=== PATIENT | male | born 1950 | race Caucasian/White ===

== ENCOUNTER 2023-12-16 11:22 | Emergency (ER) | payer MEDICARE, BC, SELFPAY ==
[2023-12-16] VITALS (7 sets, daily range): BP systolic 126–161; BP diastolic 65–80; PULSE 64–108; RESP 16–24; TEMP 36.8; O2SAT 94–100; BMI 30.7
--- NOTE | 2023-12-16 11:32 | DI.RAD.S_ITS ---
PROCEDURE: XR WRIST RT MIN 3V INDICATIONS: fall/wrist pain TECHNIQUE: 4 views of the wrist were acquired. COMPARISON: None. FINDINGS: Bones: Comminuted, displaced, intra-articular fracture of distal radius. Soft tissues: No suspicious soft tissue calcifications. IMPRESSION: Distal radius fracture. Dictated by: Joan Willard MD, PhD on 12/16/2023 at 12:23 Approved by: oJan Willard MD, PhD on 12/16/2023 at 12:25
[2023-12-16] MEDS: IBUPROFEN 400 MG TABLET PO (13:56)
--- NOTE | 2023-12-16 14:41 | DI.CT.S_ITS ---
PROCEDURE: CT CERVICAL SPINE WO CON INDICATIONS: fall TECHNIQUE: Noncontrast 3 mm thick sections acquired from the skull base to the T4 level. Sagittal and coronal reformats were then constructed. For radiation dose reduction, the following was used: automated exposure control, adjustment of mA and/or kV according to patient size. COMPARISON: None. FINDINGS: Image quality: Excellent. Bones: No fractures or dislocations. There are multilevel degenerative changes of the cervical spine with facet and uncovertebral arthropathy, disc height loss with degenerative endplate changes and spurring. This is most pronounced at C5-C6. Visualized superior ribs are intact. Soft tissues: Prevertebral soft tissues are normal in thickness. No paravertebral hematomas. No apical pneumothoraces. IMPRESSION: No displaced fracture or traumatic subluxation. Dictated by: Armen Gabriel M.D. on 12/16/2023 at 15:23 Approved by: Armen Gabriel M.D. on 12/16/2023 at 15:25
--- NOTE | 2023-12-16 14:41 | DI.CT.S_ITS ---
PROCEDURE: CT HEAD/BRAIN WO CON INDICATIONS: Fall TECHNIQUE: Noncontrast 4.5 mm thick angled axial sections acquired from the foramen magnum to the vertex, with coronal and sagittal reformats. For radiation dose reduction, the following was used: automated exposure control, adjustment of mA and/or kV according to patient size. COMPARISON: None. FINDINGS: Image quality: Diagnostic. CSF spaces: Basal cisterns are patent. No extra-axial fluid collections. The ventricles are symmetric in size and shape. Brain: Right frontal dural-based lesion measuring 1.5 x 1.2 x 0.6 centimeters. No intracranial bleeds. There is cerebral volume loss for age, with resultant ventricular and sulcal prominence. There are periventricular and deep white matter chronic small vessel ischemic changes. There is intracranial internal carotid artery atherosclerosis. Skull and face: Calvarium and visualized facial bones appear intact, without suspicious lesions. Sinuses: Complete chronic opacification of the left maxillary sinus and left anterior ethmoid air cells. Mild mucosal thickening of the inferior left frontal sinus. The paranasal sinuses are otherwise clear. The mastoids are clear. IMPRESSION: Right frontal dural-based lesion measuring up to 1.5 centimeters as described above, this appearance is most likely that of a meningioma. Focal subdural hematoma is thought to be less likely and would be expected to be more dense. Otherwise, no acute intracranial abnormalities. Dictated by: Armen Gabriel M.D. on 12/16/2023 at 15:19 Approved by: Armen Gabriel M.D. on 12/16/2023 at 15:23
--- NOTE | 2023-12-16 14:41 | DI.RAD.S_ITS ---
PROCEDURE: XR HIP W PEL IF DONE RT 2V INDICATIONS: fall TECHNIQUE: AP pelvis with lateral view(s) of the right hip(s). COMPARISON: [facility], CT, CT HEAD/BRAIN WO CON, 12/16/2023, 14:53. [facility], CT, CT CERVICAL SPINE WO CON, 12/16/2023, 14:53. [facility], CR, XR WRIST RT MIN 3V, 12/16/2023, 11:35. FINDINGS: Bones: No fractures or dislocations. Pelvic ring appears intact. No suspicious bony lesions. Soft tissues: The visualized bowel gas pattern is normal. No suspicious soft tissue calcifications. Pelvic phleboliths are incidentally noted. Vasectomy clips can be seen. IMPRESSION: No displaced fractures are seen on these plain films. If there is focal tenderness, or other clinical concern for a fracture not seen on these images in this patient with a given history of trauma, please consider a dedicated CT or a short-term followup plain film series (in 1-2 weeks) for further evaluation. Dictated by: Ayan Herrera M.D. on 12/16/2023 at 14:19 Approved by: Ayan Herrera M.D. on 12/16/2023 at 14:19
--- NOTE | 2023-12-16 14:44 | ED_ITS ---
HPI - Fall <Joy Tovar PA-C - Last Filed: 12/16/23 19:06> General Chief Complaint: Fall Stated Complaint: wrist injury Time Seen by Provider: 12/16/23 12:36 Source: patient Mode of arrival: Ambulatory History of Present Illness HPI Narrative: 73-year-old male with no reported past medical history presents to the ED status post a fall sustained last night. Patient states that he has his daughter and her family visiting, they were celebrating, he consumed more alcoholic drinks than he normally does. Patient went to walk the dogs, went looking for him a little bit later, found him sitting at the bottom of the steps shouting for help. Patient's surmised that he had suffered a fall and brought him indoors. Patient states that he does not remember what happened, that he does not even remember going out to walk the dogs. Patient is endorsing pain in the right wrist and right hip. While he is unsure if he hit his head, he does feel soreness to the right temporal area. Denies neck pain, back pain. Denies chest pain, shortness of breath, fever, chills, nausea, vomiting. Patient states that he was not sick or unwell yesterday prior to the injury. Related Data Previous Rx's Medication Instructions Recorded hydrocodone 5 mg-acetaminophen 325 1 tab PO Q8H PRN pain #10 tabs 12/16/23 mg tablet Allergies Allergy/AdvReac Type Severity Reaction Status Date / Time No Known Drug Allergies Allergy Verified 12/16/23 11:27 Review of Systems <Joy Tovar PA-C - Last Filed: 12/16/23 19:06> Constitutional Constitutional: Denies chills, Denies fatigue, Denies fever(s), Denies frequent falls, Denies lethargy and Denies weakness Eyes Eyes: Denies change in vision, Denies eye discharge, Denies irritation and Denies loss of vision ENT Ears, Nose, Mouth, and Throat: Denies change in voice, Denies dizziness, Denies neck pain, Denies sore throat and Denies throat swelling Cardiovascular Cardiovascular: Denies chest pain, Denies irregular heart rhythm, Denies lightheadedness, Denies palpitations, Denies dyspnea, Denies dyspnea on exertion and Denies orthopnea Respiratory Respiratory: Denies cough, Denies dyspnea, Denies dyspnea on exertion and Denies wheezing Gastrointestinal Gastrointestinal: Denies abdominal pain, Denies change in bowel habits, Denies diarrhea, Denies nausea and Denies vomiting Musculoskeletal Musculoskeletal: Denies neck pain and Denies numbness Comments: Right hip, right wrist pain Integumentary/Breasts Skin/Breast: Denies pruritus, Denies erythema, Denies rash and Denies wounds Neurologic Neurologic: Denies behavioral changes, Denies confusion, Denies dizziness, Denies frequent falls, Denies loss of vision, Denies numbness and Denies weakness Psychiatric Psychiatric: Denies anxiety, Denies behavioral changes, Denies confusion, Denies depression, Denies homicidal ideation and Denies suicidal ideation Endocrine Endocrine: Denies fatigue, Denies flushing and Denies palpitations Hematologic/Lymphatic Hematologic/Lymphatic: Denies easy bruising Allergic/Immunologic Allergic/Immunologic: Denies urticaria, Denies throat swelling and Denies wheezing Patient History <Joy Tovar PA-C - Last Filed: 12/16/23 19:06> Social History Smoking Status: Current every day smoker Smoking Status: Current every day smoker tobacco type: cigars alcohol intake frequency: 0-2 drinks per day Substance Use Type: marijuana Exam <Joy Tovar PA-C - Last Filed: 12/16/23 19:06> Narrative Exam Narrative: Const General:?cooperative, healthy appearing and comfortable [facility] Head:?normal to inspection Ears:?hearing grossly normal bilaterally Nose:?external nose normal Face and sinus:?normal facial exam and sinuses nontender Mouth:?oral mucosae normal Throat:?posterior oropharynx normal Eyes General:?appearance normal, both eyes and all related structures Neck Neck:?normal visual inspection and no lymphadenopathy noted Resp Effort & Inspection:?normal respiratory effort Auscultation:?clear to auscultation bilaterally Cardio Rate:?regular rate Rhythm:?regular rhythm Musculoskeletal Swelling, tenderness of right wrist. Range of motion limited by pain. Mild tenderness to palpation of the right hip. No midline tenderness to palpation. No paraspinal tenderness to palpation. Gait is normal. There are some abrasions to the right knee. Neuro General:?patient alert, patient awake and patient oriented x3 Initial Vital Signs Initial Vital Signs: Vital Signs Temperature 98.3 F 12/16/23 11:27 Pulse Rate 64 12/16/23 11:27 Respiratory Rate 18 12/16/23 11:27 Blood Pressure 133/75 12/16/23 11:27 Pulse Oximetry 100 12/16/23 11:27 Oxygen Delivery Method Room Air 12/16/23 11:27 <Lissy Root MD - Last Filed: 12/16/23 20:45> Initial Vital Signs Initial Vital Signs: Vital Signs Temperature 98.3 F 12/16/23 11:27 Pulse Rate 64 12/16/23 11:27 Respiratory Rate 18 12/16/23 11:27 Blood Pressure 133/75 12/16/23 11:27 Pulse Oximetry 100 12/16/23 11:27 Oxygen Delivery Method Room Air 12/16/23 11:27 Course <Joy Tovar PA-C - Last Filed: 12/16/23 19:06> Orders Ordered: ED Orders 12/16/23 14:41 CT cervical spine wo con Stat CT head/brain wo con Stat XR hip w pel if done RT 2V Stat 12/16/23 17:50 CXR [XR chest 2V] Stat 12/16/23 18:06 BNP [NT-proBNP (BNP-Adult 18+)] Stat CBC Auto Diff [Complete Blood Count AUTO DIFF] Stat CMP [Comprehensive Metabolic Panel] Stat Lipase Stat PT [Prothrombin Time INR] Stat PTT Partial Thromboplastin Grupo Stat Troponin & CK Cardiac Panel Stat 12/16/23 18:56 CT head/brain wo con Stat Discontinued Medications Hydrocodone Bitart/Acetaminophen (Hydrocodone/Acet 5/325 Prepack) 1 bottle MISC DIRECTED ONE Stop: 12/16/23 20:09 Last Admin: 12/16/23 20:15 Dose: 1 bottle Documented By: FABI Sodium Chloride (Normal Saline 0.9%) 1,000 mls @ 1,000 mls/hr IV BOLUS ONE Stop: 12/16/23 18:51 Last Infusion: 12/16/23 19:50 Dose: Infused Documented By: Admin: 12/16/23 18:28 Dose: 1,000 mls/hr Documented By: MERLYN Ibuprofen (Ibuprofen 400 Mg Tablet) 400 mg PO NOW ONE Stop: 12/16/23 13:50 Last Admin: 12/16/23 13:56 Dose: 400 mg Documented By: JEANINE Oxycodone/Acetaminophen (Oxycodone/Acetaminophen 5/325 Tablet) 1 tab PO NOW ONE Stop: 12/16/23 15:55 Last Admin: 12/16/23 15:59 Dose: 1 tab Documented By: JEANINE Vital Signs Vital signs: Vital Signs - 8 hr 12/16/23 17:45 12/16/23 18:27 12/16/23 18:27 Pulse Rate 108 H 70 Respiratory Rate 18 16 Blood Pressure 126/65 152/73 H Pulse Oximetry 94 96 Oxygen Delivery Method Room Air 12/16/23 18:30 12/16/23 18:30 12/16/23 19:00 Pulse Rate 71 69 Respiratory Rate 18 24 Blood Pressure 151/79 H Pulse Oximetry 97 98 Oxygen Delivery Method 12/16/23 19:00 12/16/23 19:30 12/16/23 20:00 Pulse Rate 65 66 Respiratory Rate 20 18 Blood Pressure 152/74 H Pulse Oximetry 98 99 Oxygen Delivery Method Room Air 12/16/23 20:00 Pulse Rate Respiratory Rate Blood Pressure 161/80 H Pulse Oximetry Oxygen Delivery Method <Lissy Root MD - Last Filed: 12/16/23 20:45> Orders Ordered: ED Orders 12/16/23 14:41 CT cervical spine wo con Stat CT head/brain wo con Stat XR hip w pel if done RT 2V Stat 12/16/23 17:50 CXR [XR chest 2V] Stat 12/16/23 18:06 BNP [NT-proBNP (BNP-Adult 18+)] Stat CBC Auto Diff [Complete Blood Count AUTO DIFF] Stat CMP [Comprehensive Metabolic Panel] Stat Lipase Stat PT [Prothrombin Time INR] Stat PTT Partial Thromboplastin Grupo Stat Troponin & CK Cardiac Panel Stat 12/16/23 18:56 CT head/brain wo con Stat Discontinued Medications Hydrocodone Bitart/Acetaminophen (Hydrocodone/Acet 5/325 Prepack) 1 bottle MISC DIRECTED ONE Stop: 12/16/23 20:09 Last Admin: 12/16/23 20:15 Dose: 1 bottle Documented By: FABI Sodium Chloride (Normal Saline 0.9%) 1,000 mls @ 1,000 mls/hr IV BOLUS ONE Stop: 12/16/23 18:51 Last Infusion: 12/16/23 19:50 Dose: Infused Documented By: Admin: 12/16/23 18:28 Dose: 1,000 mls/hr Documented By: MERLYN Ibuprofen (Ibuprofen 400 Mg Tablet) 400 mg PO NOW ONE Stop: 12/16/23 13:50 Last Admin: 12/16/23 13:56 Dose: 400 mg Documented By: JEANINE Oxycodone/Acetaminophen (Oxycodone/Acetaminophen 5/325 Tablet) 1 tab PO NOW ONE Stop: 12/16/23 15:55 Last Admin: 12/16/23 15:59 Dose: 1 tab Documented By: JEANINE Vital Signs Vital signs: Vital Signs - 8 hr 12/16/23 17:45 12/16/23 18:27 12/16/23 18:27 Pulse Rate 108 H 70 Respiratory Rate 18 16 Blood Pressure 126/65 152/73 H Pulse Oximetry 94 96 Oxygen Delivery Method Room Air 12/16/23 18:30 12/16/23 18:30 12/16/23 19:00 Pulse Rate 71 69 Respiratory Rate 18 24 Blood Pressure 151/79 H Pulse Oximetry 97 98 Oxygen Delivery Method 12/16/23 19:00 12/16/23 19:30 12/16/23 20:00 Pulse Rate 65 66 Respiratory Rate 20 18 Blood Pressure 152/74 H Pulse Oximetry 98 99 Oxygen Delivery Method Room Air 12/16/23 20:00 Pulse Rate Respiratory Rate Blood Pressure 161/80 H Pulse Oximetry Oxygen Delivery Method MDM - Fall <Joy Tovar PA-C - Last Filed: 12/16/23 19:06> Lab Data 12/16/23 18:06 12/16/23 18:06 Labs: Lab Results 12/16/23 Range/Units 18:06 WBC 12.7 H (4.5-11.0) X10^3/uL RBC 4.74 (4.5-5.9) X10^6/uL Hgb 15.4 (13.5-17.5) g/dL Hct 44.4 (41-53) % MCV 93.6 (80-100) fL MCH 32.5 (26-34) PG MCHC 34.7 (30-36) % RDW 13.4 (11.6-14.8) % Plt Count 202 (150-400) X10^3/uL Neut % (Auto) 76.4 H (50-75) % Lymph % (Auto) 14.7 L (25-40) % [place] % (Auto) 7.6 (3-14) % Eos % (Auto) 0.9 L (2-4) % Baso % (Auto) 0.4 (0-2) % Neut # (Auto) 9700 H (7019-7106) /uL Lymph # (Auto) 1900 (3858-1288) /uL [place] # (Auto) 1000 H (0-900) /uL Eos # (Auto) 100 (0-450) /uL Baso # (Auto) 100 (0-100) /uL PT 11.6 (9.4-12.5) SECONDS INR 1.0 (0.9-1.3) APTT 30 (25.1-36.5) SECONDS Sodium 139 (137-145) mmol/L Potassium 4.2 (3.4-5.1) mmol/L Chloride 109 H (98-107) mmol/L Carbon Dioxide 24 (22-32) mmol/L BUN 29 H (9-20) mg/dL Creatinine 1.27 H (0.66-1.25) mg/dL Estimated GFR > 60 (>60) mL/min BUN/Creatinine Ratio 22.8 H (6-22) Glucose 146 H (80-110) mg/dL Calcium 9.4 (8.4-10.2) mg/dL Total Bilirubin 0.7 (0.2-1.3) mg/dL AST 25 (17-59) IU/L ALT 33 (<50) IU/L Alkaline Phosphatase 49 (38-126) U/L Total Creatine Kinase 220 H (55-170) U/L Troponin I < 0.012 (0.01-0.034) ng/mL NT-Pro-B Natriuret Pep 549 H (<125) pg/mL Total Protein 7.6 (6.3-8.2) g/dL Albumin 4.5 (3.5-5.0) g/dL Globulin 3.1 (1.7-4.1) g/dL Albumin/Globulin Ratio 1.5 (1.0-2.8) Lipase 125 (23-300) U/L MDM Narrative Medical decision making narrative: 73-year-old male with no reported past medical history presents to the ED status post a fall sustained last night. Concern for fracture/dislocation versus musculoskeletal sprain/strain versus intracranial hemorrhage versus other. Will obtain CT head, CT C-spine, x-rays of wrist, hip and pelvis. Tetanus is up-to-date. Head CT shows a right frontal dural-based lesion measuring up to 1.5 cm. No intracranial bleeds. Focal subdural hematoma is thought to be less likely, and would be expected to be more dense. No other acute intracranial abnormalities. Cervical spines CT without acute findings. Hip x-ray negative. Right wrist x- ray shows a comminuted, displaced, intra-articular fracture of the distal radius. Given findings on head CT, will obtain a repeat CT in 4 hours. Will also obtain Labs, EKG, chest x-ray, troponin, BNP. Likely discharge if repeat CT and workup negative. EKG shows right bundle branch block, no acute ST T changes. Chest x-ray without acute findings. Labs unremarkable. Troponin within normal limits. Creatinine slightly elevated at 1.27. Unclear if CKD versus AIXA. Patient given a L bolus of IV fluids. BNP 549 which is within normal limits per patient's age. Awaiting repeat CT. Patient has been turned over to Dr. Lissy Root at this time. <Lissy Root MD - Last Filed: 12/16/23 20:45> Lab Data Labs: Lab Results 12/16/23 Range/Units 18:06 WBC 12.7 H (4.5-11.0) X10^3/uL RBC 4.74 (4.5-5.9) X10^6/uL Hgb 15.4 (13.5-17.5) g/dL Hct 44.4 (41-53) % MCV 93.6 (80-100) fL MCH 32.5 (26-34) PG MCHC 34.7 (30-36) % RDW 13.4 (11.6-14.8) % Plt Count 202 (150-400) X10^3/uL Neut % (Auto) 76.4 H (50-75) % Lymph % (Auto) 14.7 L (25-40) % [place] % (Auto) 7.6 (3-14) % Eos % (Auto) 0.9 L (2-4) % Baso % (Auto) 0.4 (0-2) % Neut # (Auto) 9700 H (9621-6562) /uL Lymph # (Auto) 1900 (0161-5825) /uL [place] # (Auto) 1000 H (0-900) /uL Eos # (Auto) 100 (0-450) /uL Baso # (Auto) 100 (0-100) /uL PT 11.6 (9.4-12.5) SECONDS INR 1.0 (0.9-1.3) APTT 30 (25.1-36.5) SECONDS Sodium 139 (137-145) mmol/L Potassium 4.2 (3.4-5.1) mmol/L Chloride 109 H (98-107) mmol/L Carbon Dioxide 24 (22-32) mmol/L BUN 29 H (9-20) mg/dL Creatinine 1.27 H (0.66-1.25) mg/dL Estimated GFR > 60 (>60) mL/min BUN/Creatinine Ratio 22.8 H (6-22) Glucose 146 H (80-110) mg/dL Calcium 9.4 (8.4-10.2) mg/dL Total Bilirubin 0.7 (0.2-1.3) mg/dL AST 25 (17-59) IU/L ALT 33 (<50) IU/L Alkaline Phosphatase 49 (38-126) U/L Total Creatine Kinase 220 H (55-170) U/L Troponin I < 0.012 (0.01-0.034) ng/mL NT-Pro-B Natriuret Pep 549 H (<125) pg/mL Total Protein 7.6 (6.3-8.2) g/dL Albumin 4.5 (3.5-5.0) g/dL Globulin 3.1 (1.7-4.1) g/dL Albumin/Globulin Ratio 1.5 (1.0-2.8) Lipase 125 (23-300) U/L MDM Narrative Medical decision making narrative: 73-year-old male with no reported past medical history presents to the ED status post a fall sustained last night. Concern for fracture/dislocation versus musculoskeletal sprain/strain versus intracranial hemorrhage versus other. Will obtain CT head, CT C-spine, x-rays of wrist, hip and pelvis. Tetanus is up-to-date. Head CT shows a right frontal dural-based lesion measuring up to 1.5 cm. No intracranial bleeds. Focal subdural hematoma is thought to be less likely, and would be expected to be more dense. No other acute intracranial abnormalities. Cervical spines CT without acute findings. Hip x-ray negative. Right wrist x- ray shows a comminuted, displaced, intra-articular fracture of the distal radius. Given findings on head CT, will obtain a repeat CT in 4 hours. Will also obtain Labs, EKG, chest x-ray, troponin, BNP. Likely discharge if repeat CT and workup negative. EKG shows right bundle branch block, no acute ST T changes. Chest x-ray without acute findings. Labs unremarkable. Troponin within normal limits. Creatinine slightly elevated at 1.27. Unclear if CKD versus AIXA. Patient given a L bolus of IV fluids. BNP 549 which is within normal limits per patient's age. Awaiting repeat CT. Patient has been turned over to Dr. Lissy Root at this time. Dr. Root -care of patient is signed out to be a by Joy. Independent review of patient and chart performed by myself. Patient reassessed, repeat head CT unchanged, likely meningioma. Patient was not take any blood thinners including aspirin or Plavix. He was in his splint and he was neurovascularly intact. He is in [place] until February, when he will go back to [place]. He was given a referral to a local orthopedic doctor. Counseled on his repeat imaging results. Pain medication sent to pharmacy of choice. Patient counseled on strict ED return precautions Discharge Plan Departure Patient Disposition: Home Clinical Impression: Fracture of wrist Instructions: DI for Distal Radius Fracture, DI for Meningioma Activity Restrictions/Additional Instructions: YOU HAVE A DISTAL RADIUS FRACTURE OF YOUR RIGHT HAND. KEEP THE SPLINT ON, ELEVATE YOUR LIMB ABOVE WRIST LEVEL TO HELP DECREASE SWELLING. PAIN MEDICATIONS HAVE BEEN SENT TO [facility] IN [place]. FOLLOW UP WITH ORTHOPEDIC SURGERY, A REFERRAL PHONE NUMBER HAS BEEN PROVIDED. YOUR CT SHOWS THAT YOU HAVE A FRONTAL LESION, THIS IS THOUGHT MOST LIKELY TO BE A MENINGIOMA. THIS WAS STABLE ON BOTH CT SCANS, AND SO A BLEED IS THOUGHT TO BE MUCH LESS LIKELY. IF YOU HAVE ANY SYMPTOMS THAT ARE CONCERNING TO YOU PLEASE FEEL FREE TO COME BACK TO THE EMERGENCY DEPARTMENT FOR REPEAT EVALUATION. Prescriptions: New hydrocodone-acetaminophen 5-325 mg tablet 1 tab PO Q8H PRN (Reason: pain) Qty: 10 0RF Referrals: Jessi Brooks MD [Physician] - Stand Alone Forms: Patient Portal/API
[2023-12-16] MEDS: OXYCODONE/ACETAMINOPHEN 5/325 TABLET 1 TAB PO (15:59)
--- NOTE | 2023-12-16 17:50 | DI.RAD.S_ITS ---
PROCEDURE: XR CHEST 2V INDICATIONS: fall TECHNIQUE: 2 views of the chest were acquired. COMPARISON: None. FINDINGS: Surgical changes and devices: None. Lungs and pleura: Lungs are clear. No pleural effusions or pneumothorax. Mediastinum: Mediastinal contours are normal. Heart size is normal. Bones and chest wall: No suspicious bony abnormalities. Soft tissues appear unremarkable. IMPRESSION: No acute cardiopulmonary pathology. Dictated by: Kolton Crews M.D. on 12/16/2023 at 18:28 Approved by: Kolton Crews M.D. on 12/16/2023 at 18:28
--- NOTE | 2023-12-16 18:04 | EKG_ITS ---
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
[2023-12-16 18:13] LABS: Add Manual Diff / Slide Review NO; Basophils Absolute Auto 100 /uL (0-100); Basophils Percent Auto 0.4 % (0-2); Eosinophils Absolute Auto 100 /uL (0-450); Eosinophils Percent Auto 0.9 % (2-4); Hematocrit 44.4 % (41-53); Hemoglobin 15.4 g/dL (13.5-17.5); Lymphocytes Absolute Auto 1900 /uL (1100-4500); Lymphocytes Percent Auto 14.7 % (25-40); Mean Corpuscular HGB Conc 34.7 % (30-36); Mean Corpuscular Hemoglobin 32.5 PG (26-34); Mean Corpuscular Volume 93.6 fL (80-100); Monocytes Absolute Auto 1000 /uL (0-900); Monocytes Percent Auto 7.6 % (3-14); Neutrophils Absolute Auto 9700 /uL (1500-7000); Neutrophils Percent Auto 76.4 % (50-75); Platelet Count 202 X10^3/uL (150-400); Red Blood Cell Count 4.74 X10^6/uL (4.5-5.9); Red Cell Distribution Width 13.4 % (11.6-14.8); White Blood Cell Count 12.7 X10^3/uL (4.5-11.0)
[2023-12-16 18:21] LABS: Prothrombin Time 11.6 SECONDS (9.4-12.5)
[2023-12-16 18:24] LABS: PTT Partial Thromboplastin Tim 30 SECONDS (25.1-36.5)
[2023-12-16] MEDS: SODIUM CHLORIDE 0.9% 1,000 ML 1000 ML IV (18:28)
[2023-12-16 18:32] LABS: Alanine Aminotransferase 33 IU/L (<50); Albumin 4.5 g/dL (3.5-5.0); Albumin Globulin Ratio 1.5 (1.0-2.8); Alkaline Phosphatase 49 U/L (38-126); Aspartate Aminotransferase 25 IU/L (17-59); BUN Creatinine Ratio 22.8 (6-22); Bilirubin Total 0.7 mg/dL (0.2-1.3); Blood Urea Nitrogen 29 mg/dL (9-20); Calcium 9.4 mg/dL (8.4-10.2); Carbon Dioxide 24 mmol/L (22-32); Chloride 109 mmol/L (98-107); Creatine Kinase 220 U/L (55-170); Estimated Glomerular Filt Rate > 60 mL/min (>60); Globulin 3.1 g/dL (1.7-4.1); Glucose 146 mg/dL (80-110); HEMOLYSIS < 15 (0-50); Lipase 125 U/L (23-300); Potassium 4.2 mmol/L (3.4-5.1); Sodium 139 mmol/L (137-145); Total Protein 7.6 g/dL (6.3-8.2)
[2023-12-16 18:44] LABS: NT-proBNP (BNP-Adult 18+) 549 pg/mL (<125); Troponin I < 0.012 ng/mL (0.01-0.034)
--- NOTE | 2023-12-16 18:56 | DI.CT.S_ITS ---
PROCEDURE: CT HEAD/BRAIN WO CON INDICATIONS: fall TECHNIQUE: Noncontrast 4.5 mm thick angled axial sections acquired from the foramen magnum to the vertex, with coronal and sagittal reformats. For radiation dose reduction, the following was used: automated exposure control, adjustment of mA and/or kV according to patient size. COMPARISON: [facility], CT, CT HEAD/BRAIN WO CON, 12/16/2023, 14:53. FINDINGS: Image quality: Diagnostic. CSF spaces: Basal cisterns are patent. No extra-axial fluid collections. The ventricles are symmetric in size and shape. Brain: No intracranial bleeds or masses. There is moderate cerebral volume loss for age, with resultant ventricular and sulcal prominence. There are periventricular and deep white matter chronic small vessel ischemic changes. There is intracranial internal carotid artery atherosclerosis. Redemonstration of right frontal dural-based lesion measuring approximately 1.5 x 1.2 x 0.6 cm. This is unchanged in size and appearance. Skull and face: Calvarium and visualized facial bones appear intact, without suspicious lesions. Sinuses: Redemonstration of complete chronic appearing opacification of the left maxillary sinus and left anterior ethmoid air cells. Mild mucosal thickening of the left frontal sinus. Remainder of the paranasal sinuses appear clear. Mastoid air cells are well-aerated. IMPRESSION: Stable appearance of right frontal dural based lesion measuring up to 1.5 cm as described above. This is again most likely a meningioma. Focal subdural hematoma not completely excluded but thought less likely. Otherwise, no acute intracranial abnormalities identified. No evidence for acute intracranial hemorrhage. Dictated by: Marc North M.D. on 12/16/2023 at 19:54 Approved by: Marc North M.D. on 12/16/2023 at 19:58
[2023-12-16] MEDS: HYDROCODONE/ACET 5/325 PREPACK 1 BOTTLE MISC (20:15)
== END 2023-12-16 20:26 | disposition home or self-care (01) ==
PROVIDERS: Emergency Provider Student in an Organized Health Care Education/Training Program
DX: S52.501A Unspecified fracture of the lower end of right radius, initial encounter for closed fracture (principal); S09.90XA Unspecified injury of head, initial encounter; M25.551 Pain in right hip; M54.2 Cervicalgia; S80.211A Abrasion, right knee, initial encounter; W10.9XXA Fall (on) (from) unspecified stairs and steps, initial encounter; I45.10 Unspecified right bundle-branch block
CPT/HCPCS: 70450; 71046; 72125; 73110; 73502; 80053; 82550; 83690; 83880; 84484; 85025; 85610; 85730; 93005; 93010; 96360; 99284